=== PATIENT | female | born 1975 | race Caucasian/White ===

== ENCOUNTER 2018-03-16 04:14 | Emergency (ER) | payer MEDICAID ==
--- OUTSIDE RECORDS SUMMARY | 2018-03-16 04:17 | XMS REPORT ---
:1975 [facility] Address [address] [place] [address] Care Team Providers Name Role Phone UNKNOWN, REFFERING Primary Care Provider Unavailable Problems This patient has no known problems. Allergies, Adverse Reactions, Alerts This patient has no known allergies or adverse reactions. Medications This patient has no known medications. Encounters Start End Encounter Admission Attending Care Care Encounter Date/Time Date/Time Type Type Clinicians Facility Department ID 2017-05-07 2017-05-07 Emergency [facility] MED [id number] 18:00:00 18:00:00
[2018-03-16] MEDS ORDERED: NA CHLORIDE 0.9% 1,000 ML ONE (04:36)
[2018-03-16 05:04] LABS: Absolute Monocytes 0.6 K/uL (0.1-1.3); Absolute Neutrophil 7.1 K/uL (1.8-8.0); Basophils % 0.6 % (0-1.3); Eosinophils % 0.7 % (0-4.4); Hematocrit 38.8 % (36.0-45.0); MCH 29.5 pg (27.0-35.0); MCV 88.3 fL (80-100); MPV 9.2 fL (7.6-11.3); Monocytes % 5.7 % (3.3-12.3); RBC Red Blood Cell Count 4.39 M/uL (3.86-4.86)
[2018-03-16 05:08] LABS: Protime INR 0.95
[2018-03-16 05:10] LABS: Bicarbonate 28 mEq/L (21-31); Glucose Level 93 mg/dL (65-120); Potassium 3.4 mEq/L (3.6-5.0); Sodium Level 139 mEq/L (135-145)
[2018-03-16 05:15] LABS: ALT/SGPT 19 IU/L (10-60); AST/SGOT 20 IU/L (10-42); Albumin 4.1 g/dL (3.2-5.5); Alkaline Phosphatase 70 IU/L (42-121); BUN Blood Urea Nitrogen 12 mg/dL (6-20); Bilirubin Direct 0.1 mg/dL (0-0.2); Bilirubin Total 0.3 mg/dL (0.3-1.2); Protein, Total 7.5 g/dL (6.0-8.3)
[2018-03-16 05:17] LABS: Alcohol Serum/Plasma < 10 mg/dl; Salicylates Level < 4.0 mg/dl (<30)
[2018-03-16] MEDS ORDERED: FOSPHENYTOIN PE 500 MG/10 ML VIAL ONE (05:39)
[2018-03-16] MEDS ORDERED: NA CHLORIDE 0.9% 100 ML IV ONE (05:40)
--- NOTE | 2018-03-16 05:43 | EDPHYS ---
Physician Documentation [facility] Name: Kathy Johnson Age: 42 yrs Sex: Female : 1975 Arrival Date: 03/16/2018 Time: 04:26 Bed 8 Private MD: ED Physician Garrett Cox HPI: 03/16 05:36 This 42 yrs old Female presents to ER via EMS with complaints of fall, sp estrella seizure and right wrist pain. 05:36 The patient presents after having a single isolated seizure, that lasted 1 minute(s). estrella Character of seizure(s): Loss of consciousness: the patient experienced loss of consciousness, Motor activity: generalized, Incontinence: none, Apnea: the patient did not experience apnea. Seizure onset: just prior to arrival. Context: the seizure(s) was witnessed, by police. Seizure Hx: Last seizure: The patient's last seizure is unknown. Associated injury: Right upper extremity: right wrist, decreased range of motion, pain, swelling, tenderness. The patient or guardian reports decreased range of motion, pain, swelling, tenderness. 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 - Social history:: Smoking status: Patient uses tobacco products, 5 sticks a day, Patient uses alcohol, had a beer today. - Family history:: not pertinent. ROS: 05:36 Constitutional: Negative for fever, chills, and weight loss, Eyes: Negative for injury, estrella pain, redness, and discharge, ENT: Negative for injury, pain, and discharge, Neck: Negative for injury, pain, and swelling, Cardiovascular: Negative for chest pain, palpitations, and edema, Respiratory: Negative for shortness of breath, cough, wheezing, and pleuritic chest pain, Abdomen/GI: Negative for abdominal pain, nausea, vomiting, diarrhea, and constipation, Back: Negative for injury and pain, : Negative for injury, bleeding, discharge, and swelling, Skin: Negative for injury, rash, and discoloration, Psych: Negative for depression, anxiety, suicide ideation, homicidal ideation, and hallucinations. 05:36 MS/extremity: Positive for decreased range of motion, pain, swelling, tenderness, of the dorsal aspect of left forearm, left wrist and palmar aspect of left forearm. 05:36 Neuro: Positive for seizure activity, weakness. Exam: 05:36 Constitutional: This is a well developed, well nourished patient who is awake, alert, estrella and in no acute distress. Head/Face: Normocephalic, atraumatic. Eyes: Pupils equal round and reactive to light, extra-ocular motions intact. Lids and lashes normal. Conjunctiva and sclera are non-icteric and not injected. Cornea within normal limits. Periorbital areas with no swelling, redness, or edema. ENT: Nares patent. No nasal discharge, no septal abnormalities noted. Tympanic membranes are normal and external auditory canals are clear. Oropharynx with no redness, swelling, or masses, exudates, or evidence of obstruction, uvula midline. Mucous membranes moist. Neck: Trachea midline, no thyromegaly or masses palpated, and no cervical lymphadenopathy. Supple, full range of motion without nuchal rigidity, or vertebral point tenderness. No Meningismus. Chest/axilla: Normal chest wall appearance and motion. Nontender with no deformity. No lesions are appreciated. Cardiovascular: Regular rate and rhythm with a normal S1 and S2. No gallops, murmurs, or rubs. Normal PMI, no JVD. No pulse deficits. Respiratory: Lungs have equal breath sounds bilaterally, clear to auscultation and percussion. No rales, rhonchi or wheezes noted. No increased work of breathing, no retractions or nasal flaring. Abdomen/GI: Soft, non-tender, with normal bowel sounds. No distension or tympany. No guarding or rebound. No evidence of tenderness throughout. Back: No spinal tenderness. No costovertebral tenderness. Full range of motion. Female : Normal external genitalia. Skin: Warm, dry with normal turgor. Normal color with no rashes, no lesions, and no evidence of cellulitis. Neuro: Awake and alert, GCS 15, oriented to person, place, time, and situation. Cranial nerves II-XII grossly intact. Motor strength 5/5 in all extremities. Sensory grossly intact. Cerebellar exam normal. Normal gait. Psych: Awake, alert, with orientation to person, place and time. Behavior, mood, and affect are within normal limits. 05:36 Musculoskeletal/extremity: ROM: limited active range of motion, limited passive range of motion, Circulation is intact in all extremities. Pulses: are normal with no appreciated deficits, Sensation intact. Compartment Syndrome exam of affected extremity: is normal. no pain, no numbness, no sensation deficit. Vital Signs: 04:33 BP 111 / 85; Pulse 94; Resp 18; Temp 98.3; Pulse Ox 98% ; Pain 8/10; mg2 04:37 Weight 97.52 kg; Height 5 ft. 7 in. (170.18 cm); mg2 05:31 BP 107 / 75; Pulse 90; Resp 18; Pulse Ox 100% on R/A; mg2 04:37 Body Mass Index 33.67 (97.52 kg, 170.18 cm) mg2 MDM: 04:28 Patient medically screened. [facility] 06:22 Data reviewed: vital signs, nurses notes, lab test result(s), EKG, radiologic studies, [facility] CT scan, plain films. 03/16 04:30 Order name: Acetaminophen [facility] 03/16 04:30 Order name: Basic Metabolic Panel; Complete Time: 05:35 [facility] 03/16 04:30 Order name: CBC with Diff; Complete Time: 05:35 [facility] 03/16 04:30 Order name: ETOH Level; Complete Time: 05:35 [facility] 03/16 04:30 Order name: Hepatic Function; Complete Time: 05:35 [facility] 03/16 04:30 Order name: PT-INR; Complete Time: 05:35 [facility] 03/16 04:30 Order name: Ptt, Activated; Complete Time: 05:35 [facility] 03/16 04:30 Order name: Salicylate; Complete Time: 05:35 [facility] 03/16 04:30 Order name: CT Head Brain wo Cont [facility] 03/16 04:30 Order name: Wrist Right 3 View XRAY [facility] 03/16 04:30 Order name: Acetaminophen Level; Complete Time: 05:35 EDMS 03/16 05:33 Order name: Dilantin; Complete Time: 06:21 [facility] 03/16 04:30 Order name: EKG; Complete Time: 04:30 [facility] 03/16 04:30 Order name: EKG - Nurse/Tech; Complete Time: 04:57 [facility] 03/16 04:30 Order name: IV Saline Lock; Complete Time: 04:44 [facility] 03/16 04:30 Order name: Labs collected and sent; Complete Time: 04:44 [facility] 03/16 04:30 Order name: Seizure Precautions; Complete Time: 04:43 [facility] 03/16 05:41 Order name: Ice pack; Complete Time: 06:19 [facility] 03/16 05:41 Order name: Sling; Complete Time: 05:58 [facility] 03/16 05:41 Order name: Sugar Tong Forearm Splint; Complete Time: 05:58 [facility] Administered Medications: 04:43 Drug: NS 0.9% 1000 ml Route: IV; Rate: 1 bolus; Site: left antecubital; mg2 06:30 Follow up: IV Status: Completed infusion aa1 05:52 Drug: Fosphenytoin 500 mg Route: IVPB; Site: left antecubital; mg2 06:30 Follow up: IV Status: Completed infusion aa1 05:52 Drug: morphine 4 mg Route: IVP; Site: left antecubital; mg2 06:30 Follow up: Response: No adverse reaction; Pain is decreased aa1 05:52 Drug: Zofran 4 mg Route: IVP; Site: left antecubital; mg2 06:29 Follow up: Response: No adverse reaction aa1 Disposition: 03/16/18 05:43 Discharged to Home. Impression: Epilepsy and recurrent seizures, Sprain of radiocarpal joint of right wrist, Hypokalemia. - Condition is Stable. - Discharge Instructions: Potassium Content of Foods, Seizure, Adult, Wrist Pain, Wrist Splint, Wrist Splint, Vqit-ok-Xivw, Seizure, Adult, Xvgl-nr-Ordx, Wrist Pain, Mosj-dl-Ovsw, Hypokalemia. - Prescriptions for Dilantin Kapseal 100 mg Oral Capsule - take 1 capsule by ORAL route every 8 hours; 30 capsule. Ibuprofen 600 mg Oral Tablet - take 1 tablet by ORAL route every 8 hours As needed take with food; 21 tablet. - Medication Reconciliation Form, Thank You Letter, Antibiotic Education, Prescription Opioid Use form. - Follow up: Private Physician; When: 2 - 3 days; Reason: Recheck today's complaints, Continuance of care, Re-evaluation by your physician. Follow up: Goldy Jensen MD; When: 2 - 3 days; Reason: Recheck today's complaints, Continuance of care, Re-evaluation by your physician. Follow up: Brooks Allen MD; When: 2 - 3 days; Reason: Recheck today's complaints, Continuance of care, Re-evaluation by your physician. - Problem is new. - Symptoms are unchanged. Signatures: Dispatcher [employer] EDLatrice Villa RN RN aa1 Garrett Cox MD MD cha Gardose, Michele, RN RN mg2 Corrections: (The following items were deleted from the chart) 06:23 05:43 03/16/2018 05:43 Discharged to Home. Impression: Epilepsy and recurrent seizures; estrella Sprain of radiocarpal joint of right wrist. Condition is Stable. Forms are Medication Reconciliation Form, Thank You Letter, Antibiotic Education, Prescription Opioid Use. Follow up: Private Physician; When: 2 - 3 days; Reason: Recheck today's complaints, Continuance of care, Re-evaluation by your physician. Follow up: Goldy Jensen; When: 2 - 3 days; Reason: Recheck today's complaints, Continuance of care, Re-evaluation by your physician. Follow up: Brooks Allen; When: 2 - 3 days; Reason: Recheck today's complaints, Continuance of care, Re-evaluation by your physician. Problem is new. Symptoms are unchanged. [facility] 06:33 06:23 03/16/2018 05:43 Discharged to Home. Impression: Epilepsy and recurrent seizures; aa1 Sprain of radiocarpal joint of right wrist; Hypokalemia. Condition is Stable. Discharge Instructions: Seizure, Adult, Wrist Pain, Wrist Splint, Wrist Splint, Bavz-tc-Dfim, Seizure, Adult, Tcyf-ep-Pjid, Wrist Pain, Qfet-ct-Jdkd. Prescriptions for Tylenol-Codeine #3 300-30 mg Oral Tablet - take 2 tablets by ORAL route every 6 hours As needed; 20 tablet. and Forms are Medication Reconciliation Form, Thank You Letter, Antibiotic Education, Prescription Opioid Use. Follow up: Private Physician; When: 2 - 3 days; Reason: Recheck today's complaints, Continuance of care, Re-evaluation by your physician. Follow up: Goldy Jensen; When: 2 - 3 days; Reason: Recheck today's complaints, Continuance of care, Re-evaluation by your physician. Follow up: Brooks Allen; When: 2 - 3 days; Reason: Recheck today's complaints, Continuance of care, Re-evaluation by your physician. Problem is new. Symptoms are unchanged. estrella
--- NOTE | 2018-03-16 05:43 | ER ---
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 she took her mg2 medicine Gabapentin and phenytoin \T\ 0230H today. she sustained a right wrist injury of unknown mechanism. she had a beer this morning in the car. Transition of care: patient was not received from another setting of care. Onset of symptoms was March 16, 2018. Initial Sepsis Screen: Does the patient meet any 2 criteria? No. Patient's initial sepsis screen is negative. Does the patient have a suspected source of infection? No. Patient's initial sepsis screen is negative. Care prior to arrival: None. 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 - Social history:: Smoking status: Patient uses tobacco products, 5 sticks a day, Patient uses alcohol, had a beer today. - Family history:: not pertinent. Screenin:34 Abuse screen: Denies threats or abuse. Denies injuries from another. Nutritional mg2 screening: No deficits noted. Tuberculosis screening: No symptoms or risk factors identified. Fall Risk Secondary diagnosis (15 points) seizures. Assessment: 04:35 General: Appears in no apparent distress. comfortable, Behavior is anxious. Pain: mg2 Complains of pain in right wrist Pain does not radiate. Pain currently is 8 out of 10 on a pain scale. Quality of pain is described as aching, Pain began 2 hours ago. Is intermittent, Alleviated by repositioning, Noted to be crying. Neuro: Level of Consciousness is awake, alert, obeys commands, Oriented to person, place, time. Cardiovascular: Capillary refill < 3 seconds Patient's skin is warm and dry. Respiratory: Airway is patent Respiratory effort is even, unlabored, Respiratory pattern is regular, symmetrical. GI: No signs and/or symptoms were reported involving the gastrointestinal system. : No signs and/or symptoms were reported regarding the genitourinary system. EENT: No signs and/or symptoms were reported regarding the EENT system. Derm: Skin is intact, Skin is pink, warm \T\ dry. normal. Musculoskeletal: with right wrist pain with splint on. 06:30 Reassessment: Patient appears in no apparent distress at this time. Patient is alert, aa1 oriented x 3, equal unlabored respirations, skin warm/dry/pink. Discussed d/c \T\ f/u instructions with pt. Pt released into custody with DOROTHYPD. Vital Signs: 04:33 BP 111 / 85; Pulse 94; Resp 18; Temp 98.3; Pulse Ox 98% ; Pain 8/10; mg2 04:37 Weight 97.52 kg; Height 5 ft. 7 in. (170.18 cm); mg2 05:31 BP 107 / 75; Pulse 90; Resp 18; Pulse Ox 100% on R/A; mg2 04:37 Body Mass Index 33.67 (97.52 kg, 170.18 cm) mg2 ED Course: 04:26 Patient arrived in ED. rg2 04:27 Franky Forman, PAUL is Primary Nurse. mg2 04:28 Garrett Cox MD is Attending Physician. [facility] 04:30 Patient has correct armband on for positive identification. Bed in low position. Call aa1 light in reach. Pulse ox on. NIBP on. 04:31 Triage completed. mg2 04:35 Arm band placed on Patient placed in the treatment room, on a stretcher, on pulse mg2 oximetry. 04:43 Inserted saline lock: 20 gauge in left antecubital area, using aseptic technique. Blood mg2 collected. 04:50 X-ray completed. Portable x-ray completed in exam room. Patient tolerated procedure kw poorly. 04:51 Wrist Right 3 View XRAY In Process Unspecified. EDMS 05:20 CT Head Brain wo Cont In Process Unspecified. EDMS 05:42 Goldy Jensen MD is Referral Physician. estrella 05:42 Brooks Allen MD is Referral Physician. estrella 06:10 Orthoglass splint: Sugar tong splint applied on right arm. Sling applied to right arm. aa1 06:30 No provider procedures requiring assistance completed. IV discontinued, intact, aa1 bleeding controlled, No redness/swelling at site. Pressure dressing applied. Administered Medications: 04:43 Drug: NS 0.9% 1000 ml Route: IV; Rate: 1 bolus; Site: left antecubital; mg2 06:30 Follow up: IV Status: Completed infusion aa1 05:52 Drug: Fosphenytoin 500 mg Route: IVPB; Site: left antecubital; mg2 06:30 Follow up: IV Status: Completed infusion aa1 05:52 Drug: morphine 4 mg Route: IVP; Site: left antecubital; mg2 06:30 Follow up: Response: No adverse reaction; Pain is decreased aa1 05:52 Drug: Zofran 4 mg Route: IVP; Site: left antecubital; mg2 06:29 Follow up: Response: No adverse reaction aa1 Outcome: 05:43 Discharge ordered by . estrella 06:30 Discharged to Law Enforcement aa1 06:30 Condition: good 06:30 Discharge instructions given to patient, police, Instructed on discharge instructions, follow up and referral plans. medication usage, Demonstrated understanding of instructions, follow-up care, medications, splint care, Prescriptions given X 2. 06:33 Patient left the ED. aa1 Signatures: Dispatcher [employer] EDTamara Cotto rg2 Latrice Palomo RN RN aa1 Garrett Cox MD MD cha Whitley, Kimberlee kw Gardose, Michele, RN RN mg2
[2018-03-16] MEDS ORDERED: MORPHINE 4 MG/ML SYR ONE (05:45)
[2018-03-16] MEDS ORDERED: ONDANSETRON 4 MG/2 ML VIAL ONE (05:47)
[2018-03-16 06:37] VITALS: TEMP 98.3
--- NOTE | 2018-03-16 06:37 | EKG ---
Test Date: 2018-03-16 Test Time: 04:50:21 Production Controller: MELISSA MEASUREMENT RESULTS: Intervals: Rate: 71 VT: 122 QRSD: 96 QT: 398 QTc: 432 [place]: P: 44 VT: 122 QRS: 66 T: 44 INTERPRETIVE STATEMENTS: Normal sinus rhythm Normal ECG Compared to ECG 10/22/2017 09:37:22 No significant changes Electronically Signed On 03-16-18 06:36:51 CDT by Mamadou Iraheta
[2018-03-16 06:38] VITALS: BP 107/75; O2SAT 100
--- NOTE | 2018-03-16 08:05 | RAD REPORT ---
EXAM DESCRIPTION: CT - Head Brain Wo Cont - 03/16/2018 5:32 am CLINICAL HISTORY: Seizure COMPARISON: 10/22/2017 TECHNIQUE: All CT scans are performed using dose optimization technique as appropriate and may inclu de automated exposure control or mA/KV adjustment according to patient size. FINDINGS: No intracranial hemorrhage, hydrocephalus or extra-axial fluid collection.No areas of brai n edema or evidence of midline shift. The paranasal sinuses and mastoids are clear. The calvarium is intact. IMPRESSION: No acute intracranial abnormality.
--- NOTE | 2018-03-16 09:00 | RAD REPORT ---
EXAM DESCRIPTION: RAD - Wrist Right 3 View - 03/16/2018 4:53 am CLINICAL HISTORY: Seizure, wrist pain COMPARISON: None. FINDINGS: Advanced degenerative changes present at the radiocarpal joint. Ulnar styloid avulsion is seen, which has a corticated/old appearance. Deformity of distal radial metaphysis compatible with ol d trauma. IMPRESSION: Old posttraumatic changes affect the right wrist. An acute fracture is not suspected.
== END 2018-03-16 06:33 | disposition home or self-care (01) ==
LOC: ER 04:14
DX: S63.521A Sprain of radiocarpal joint of right wrist, initial encounter (principal); E87.6 Hypokalemia; W19.XXXA Unspecified fall, initial encounter; Y93.9 Activity, unspecified; Y92.9 Unspecified place or not applicable; Z72.0 Tobacco use; Z85.41 Personal history of malignant neoplasm of cervix uteri
CPT/HCPCS: 36415; 70450; 80048; 80076; 80185; 80320; 80329; 85025; 85610; 85730; 93005; 96361; 96365; 96375; 99284; J2405; J7030; Q2009